=== PATIENT | male | born 1950 | race Caucasian/White ===

== ENCOUNTER 2019-05-29 07:44 | Day surgery (SDC) | payer MEDICARE ==
[~2019-05-29] VITALS: Ht 170.2 cm; Wt 90.8 kg
[~2019-05-29 07:44] MED LIST: BUPIVACAINE/EPI 0.5% 1:200K ONE; HEPARIN 1,000 UNITS/ML, 10ML ONE; PROTAMINE SULFATE 10 MG/ML, 5ML ONE; THROMBIN 5,000 UNIT VIAL TP ONE
[2019-05-29] MEDS ORDERED: WARF2TAB PO (08:54)
[2019-05-29] MEDS ORDERED: WARF4TAB PO (08:54)
[2019-05-29] MEDS ORDERED: FURO80TA77 PO (08:54)
[2019-05-29] MEDS ORDERED: SODIUM CHLORIDE 0.9% 1,000 ML IV SCH (09:23)
[2019-05-29 09:24] VITALS: BP 148/69
[2019-05-29] MEDS ORDERED: PROPOFOL 50 ML ONE (09:24)
[2019-05-29] MEDS ORDERED: FENTANYL PF 250 MCG/5ML ONE (09:24)
[2019-05-29] MEDS ORDERED: ONDANSETRON ODT 8 MG PO PRN (10:00)
[2019-05-29] MEDS ORDERED: MORPHINE SULFATE 4 MG/ML, 1ML IVPush PRN (10:00)
[2019-05-29] MEDS ORDERED: EPHEDRINE 50 MG/ML, 1ML IVPush PRN (10:00)
[2019-05-29] MEDS ORDERED: MIDAZOLAM 1 MG/ML, 2ML IV PRN (10:00)
[2019-05-29] MEDS ORDERED: EPHEDRINE 50 MG/ML, 1ML IM PRN (10:00)
[2019-05-29] MEDS ORDERED: ONDANSETRON 2MG/ML, 2ML IV PRN (10:00)
[2019-05-29] MEDS ORDERED: PROMETHAZINE 25 MG/ML, 1ML IV PRN (10:00)
[2019-05-29] MEDS ORDERED: OXYcodone 5 MG/5 ML ORAL.SOL UDC PO PRN ×2 (10:00→11:30)
[2019-05-29] MEDS ORDERED: METOPROLOL 1 MG/ML, 5ML IV PRN (10:00)
[2019-05-29] MEDS ORDERED: DIPHENHYDRAMINE 50 MG/ML, 1ML IVPush PRN (10:00)
[2019-05-29] MEDS ORDERED: CEFAZOLIN 1,000 MG ONE (10:00)
[2019-05-29] MEDS ORDERED: ACETAMINOPHEN 325 MG TABLET PO PRN (10:00)
[2019-05-29] MEDS ORDERED: ONDANSETRON 2MG/ML, 2ML ONE ×2 (10:00→10:50)
[2019-05-29] MEDS ORDERED: OXYcodone 5 MG/5 ML ORAL.SOL UDC ONE ×2 (11:09→11:23)
[2019-05-29] MEDS ORDERED: FENTANYL PF 100 MCG/2ML ONE (11:09)
[2019-05-29] MEDS: FENTANYL PF 100 MCG/2ML IV PRN ×2 (11:11→11:19)
[2019-05-29] MEDS ORDERED: MORPHINE SULFATE 4 MG/ML, 1ML ONE (11:23)
[2019-05-29] MEDS ORDERED: HYDROcodone/APAP 5/325 TABLET ONE (16:16)
[2019-05-29] MEDS ORDERED: HYDROcodone/APAP 5/325 TABLET PO PRN (16:30)
== END 2019-05-29 16:35 | disposition home or self-care (01) ==
LOC: OUT 07:44
PROVIDERS: ATTEND Surgery Vascular Surgery
DX: E11.22 Type 2 diabetes mellitus with diabetic chronic kidney disease (principal); E11.65 Type 2 diabetes mellitus with hyperglycemia; I12.0 Hypertensive chronic kidney disease with stage 5 chronic kidney disease or end stage renal disease; N18.6 End stage renal disease; Z79.01 Long term (current) use of anticoagulants; Z86.711 Personal history of pulmonary embolism; Z95.0 Presence of cardiac pacemaker; Z96.641 Presence of right artificial hip joint
CPT/HCPCS: 36415; 36821; 80047; 93005; J0690; J1644; J2270; J2405; J2704; J3010; J2720